=== PATIENT | female | born 1995 | race Caucasian/White ===

== ENCOUNTER 2021-09-21 22:50 | Emergency (ER) | payer MEDICAID ==
[~2021-09-21] VITALS: Ht 165.1 cm; Wt 22.7 kg
[2021-09-22] MEDS ORDERED: ondansetron 4mg rapidly disintigrating tab PO ONE (00:35)
[2021-09-22 01:21] LABS: BASOPHILS % (AUTO) 0.2 % (0-1); EOSINOPHILS % (AUTO) 0.1 % (0-6); HEMATOCRIT 38.6 % (35.0-45.0); HEMOGLOBIN 13.3 g/dl (12.0-16.0); LYMPHOCYTES # (AUTO) 2.2 X10'3 (1.1-4.8); LYMPHOCYTES % (AUTO) 12.2 % (21-51); MEAN CORPUSCULAR HEMOGLOBIN 30.3 PG (27.0-31.0); MEAN CORPUSCULAR HGB CONC 34.5 g/dL (33.0-36.5); MEAN CORPUSCULAR VOLUME 87.9 FL (78-98); MEAN PLATELET VOLUME 7.8 FL (7.4-10.4); MONOCYTES # (AUTO) 1.7 X10'3 (0-0.9); MONOCYTES % (AUTO) 9.3 % (2-12); NEUTROPHILS # (AUTO) 13.8 X10'3 (1.8-7.7); NEUTROPHILS % (AUTO) 78.2 % (42-75); PLATELET COUNT 286 X10'3 (140-440); RED BLOOD COUNT 4.39 X10'6 (4.20-5.60); RED CELL DISTRIBUTION WIDTH 13.3 % (11.5-14.5); WHITE BLOOD COUNT 17.7 X10'3 (4.5-11.0)
[2021-09-22 01:35] LABS: ALANINE AMINOTRANSFERASE 26 U/L (12-78); ALBUMIN 2.9 G/DL (3.4-5.0); ALBUMIN/GLOBULIN RATIO 0.6 (1.1-1.5); ALKALINE PHOSPHATASE 109 IU/L (46-116); ANION GAP 10 (8-16); ASPARTATE AMINO TRANSFERASE 10 U/L (10-37); BILIRUBIN,TOTAL 0.5 MG/DL (0.1-1.0); BLOOD UREA NITROGEN 12 MG/DL (7-18); BUN/CREATININE RATIO 15.8 (6.6-38.0); CALCIUM 8.6 MG/DL (8.5-10.1); CHLORIDE 102 MMOL/L (99-107); CREATININE 0.76 MG/DL (0.40-0.90); GLUCOSE 91 MG/DL (70-104); LIPASE < 50 U/L (73-393); POTASSIUM 3.8 MMOL/L (3.5-5.1); SODIUM 137 MMOL/L (135-145); TOTAL CARBON DIOXIDE 24.8 MMOL/L (24-32); TOTAL PROTEIN 7.4 G/DL (6.4-8.2); eGFR > 90 ML/MIN
[2021-09-22] MEDS ORDERED: acetaminophen 325mg tablet PO ONE (01:40)
[2021-09-22] MEDS ORDERED: normal saline 1000ml 1,000 ML IV ONE (01:40)
[2021-09-22] MEDS ORDERED: ketorolac trometh. 30mg/ml inj. IV ONE (01:40)
[2021-09-22 01:53] LABS: URINE HCG NEGATIVE (NEG)
[2021-09-22 01:56] LABS: CLARITY,URINE CLOUDY (Clear); COLOR,URINE YELLOW (Yellow); GLUCOSE, URINE NEGATIVE (Neg); KETONES,URINE 40 mg/dl (Neg); LEUKOCYTE ESTERASE ,URINE SMALL (Neg); NITRITES, URINE POSITIVE (Neg); OCCULT BLOOD,URINE LARGE (Neg); PROTEIN,URINE 30 mg/dl (Neg); UROBILINOGEN,URINE 0.2 E.U/dL (0.2-1.0)
[2021-09-22 01:57] LABS: UA COLLECTION TYPE CLN CATCH MIDSTREAM
[2021-09-22 02:07] LABS: BACTERIA,URINE 4+ /HPF (Neg); WBC,URINE TNTC /HPF (0-4)
[2021-09-22 02:08] LABS: SQUAMOUS EPITHELIAL CELL,UR NONE SEEN /LPF (FEW)
[2021-09-22] MEDS ORDERED: CefTRIAXone 2gm/D5W 50ml BAG 50 ML IV ONE (02:10)
--- NOTE | 2021-09-22 02:10 | NUR ---
Patient taken to CT
[2021-09-22] MEDS ORDERED: CIPR-202 PO (05:04)
[2021-09-22 05:25] VITALS: BP 99/67
== END 2021-09-22 05:18 | disposition left against medical advice (07) ==
LOC: ER 22:51
DX: N12 Tubulo-interstitial nephritis, not specified as acute or chronic (principal); Z88.1 Allergy status to other antibiotic agents
CPT/HCPCS: 36415; 74176; 80053; 81001; 81025; 83690; 84145; 85025; 87088; 96361; 96365; 96375; 99284; J0696; J1885; J7030; 87077; 87186

== ENCOUNTER 2021-11-19 22:49 | Emergency (ER) | payer MEDICAID ==
[~2021-11-19] VITALS: Ht 165.1 cm; Wt 52.3 kg
[2021-11-19] MEDS ORDERED: ibuprofen tablet 400 MG TABLET PO ONE (23:40)
[2021-11-19] MEDS ORDERED: acetaminophen 325mg tablet PO ONE (23:40)
[2021-11-20 00:13] LABS: BASOPHILS % (AUTO) 0.5 % (0-1); EOSINOPHILS # (AUTO) 0.1 X10'3 (0-0.9); EOSINOPHILS % (AUTO) 1.1 % (0-6); HEMOGLOBIN 13.7 g/dl (12.0-16.0); LYMPHOCYTES # (AUTO) 2.2 X10'3 (1.1-4.8); LYMPHOCYTES % (AUTO) 24.6 % (21-51); MEAN CORPUSCULAR HEMOGLOBIN 31.3 PG (27.0-31.0); MEAN CORPUSCULAR HGB CONC 34.3 g/dL (33.0-36.5); MEAN CORPUSCULAR VOLUME 91.2 FL (78-98); MEAN PLATELET VOLUME 8.1 FL (7.4-10.4); MONOCYTES # (AUTO) 0.8 X10'3 (0-0.9); MONOCYTES % (AUTO) 8.6 % (2-12); NEUTROPHILS # (AUTO) 5.9 X10'3 (1.8-7.7); NEUTROPHILS % (AUTO) 65.2 % (42-75); PLATELET COUNT 322 X10'3 (140-440); RED BLOOD COUNT 4.38 X10'6 (4.20-5.60); RED CELL DISTRIBUTION WIDTH 14.6 % (11.5-14.5)
[2021-11-20 00:56] LABS: ALANINE AMINOTRANSFERASE 15 U/L (12-78); ALBUMIN 3.5 G/DL (3.4-5.0); ALBUMIN/GLOBULIN RATIO 0.9 (1.1-1.5); ALKALINE PHOSPHATASE 95 IU/L (46-116); ANION GAP 9 (8-16); ASPARTATE AMINO TRANSFERASE 10 U/L (10-37); BILIRUBIN,TOTAL 0.2 MG/DL (0.1-1.0); BLOOD UREA NITROGEN 19 MG/DL (7-18); BUN/CREATININE RATIO 24.4 (6.6-38.0); CALCIUM 9.2 MG/DL (8.5-10.1); CHLORIDE 103 MMOL/L (99-107); CREATININE 0.78 MG/DL (0.40-0.90); GLUCOSE 105 MG/DL (70-104); POTASSIUM 3.5 MMOL/L (3.5-5.1); SODIUM 139 MMOL/L (135-145); TOTAL CARBON DIOXIDE 27.2 MMOL/L (24-32); TOTAL PROTEIN 7.4 G/DL (6.4-8.2); eGFR 90 ML/MIN
[2021-11-20 00:59] LABS: HCG SERUM QL NEGATIVE
[2021-11-20] MEDS ORDERED: CEPH-585 PO (02:23)
[2021-11-20] MEDS ORDERED: IBUP-1985 PO (02:23)
[2021-11-20] MEDS ORDERED: ACET650T58 PO (02:23)
[2021-11-20] MEDS ORDERED: cephalexin 250mg capsule PO ONE (02:25)
[2021-11-20] MEDS ORDERED: loperamide 2mg capsule PO ONE (02:25)
[2021-11-20 02:38] LABS: CLARITY,URINE CLOUDY (Clear); COLOR,URINE YELLOW (Yellow); GLUCOSE, URINE NEGATIVE (Neg); KETONES,URINE TRACE mg/dl (Neg); LEUKOCYTE ESTERASE ,URINE NEGATIVE (Neg); NITRITES, URINE NEGATIVE (Neg); OCCULT BLOOD,URINE NEGATIVE (Neg); PH,URINE 5.5 (4.8-8.0); PROTEIN,URINE 100 mg/dl (Neg); UROBILINOGEN,URINE 0.2 E.U/dL (0.2-1.0)
[2021-11-20 02:44] LABS: UA COLLECTION TYPE NON-SPECIFIED
[2021-11-20 02:45] LABS: BACTERIA,URINE 4+ /HPF (Neg); CAL OXALATE CRYSTALS 1+ /HPF (NEGATIVE); RBC,URINE NONE SEEN /HPF (0-2); SQUAMOUS EPITHELIAL CELL,UR FEW /LPF (FEW)
[2021-11-20 03:20] VITALS: BP 102/63
[2021-11-21] MEDS ORDERED: CIPR-259 PO (16:41)
--- NOTE | 2021-11-21 17:12 | NUR ---
Patient has a positive UA at which Olga Christiansen NP escripted a prescription over to [facility] on [facility] [address] for Ciprofloxacin. patient is to be placed on Cipro and continue keflex. Patient aware and will filler picker prescription tomorrow.
== END 2021-11-20 03:23 | disposition home or self-care (01) ==
LOC: ER 22:49
DX: H60.12 Cellulitis of left external ear (principal); N39.0 Urinary tract infection, site not specified; H92.02 Otalgia, left ear; R11.2 Nausea with vomiting, unspecified; M54.50 Low back pain, unspecified; Z88.1 Allergy status to other antibiotic agents; Z88.8 Allergy status to other drugs, medicaments and biological substances; Z79.2 Long term (current) use of antibiotics; Z79.899 Other long term (current) drug therapy
CPT/HCPCS: 36415; 74176; 80053; 81001; 83605; 84145; 84703; 85025; 87040; 87077; 87088; 87186; 99284

== ENCOUNTER 2022-04-16 09:18 | Emergency (ER) | payer MEDICAID ==
[~2022-04-16] VITALS: Ht 165.1 cm; Wt 56.8 kg
[~2022-04-16 09:18] MED LIST: CEPH-585 PO; IBUP-1985 PO
[2022-04-16 10:01] VITALS: BP 114/73
== END 2022-04-16 10:26 | disposition left against medical advice (07) ==
LOC: ER 09:19
DX: O03.4 Incomplete spontaneous abortion without complication (principal); Z53.21 Procedure and treatment not carried out due to patient leaving prior to being seen by health care provider

== ENCOUNTER 2022-08-27 18:38 | Emergency (ER) | payer MEDICAID, OTHER ==
[~2022-08-27] VITALS: Ht 165.1 cm; Wt 60.5 kg
[2022-08-27 18:41] VITALS: BP 117/74
== END 2022-08-27 19:15 ==
LOC: EEVIPCON 18:38 → ER 18:38
DX: Z88.1 Allergy status to other antibiotic agents; Z88.8 Allergy status to other drugs, medicaments and biological substances
CPT/HCPCS: 74018; 99283

== ENCOUNTER 2024-05-05 17:07 | Emergency (ER) | payer MEDICAID ==
[~2024-05-05] VITALS: Ht 165.1 cm; Wt 70.0 kg
[~2024-05-05 17:07] MED LIST changes: -CEPH-585 PO
[2024-05-05] MEDS: ipratropium/albuterol 3ml nebule NEB ONE (18:44)
[2024-05-05 18:45] VITALS: PULSE 89; RESP 16; O2SAT 98
[2024-05-05 18:52] VITALS: PULSE 113; RESP 16; O2SAT 99
[2024-05-05 18:57] LABS: EOSINOPHILS % (AUTO) 0.4 % (0-6); HEMATOCRIT 38.8 % (35.0-45.0); HEMOGLOBIN 13.3 g/dl (12.0-16.0); LYMPHOCYTES # (AUTO) 1.3 X10'3 (1.1-4.8); LYMPHOCYTES % (AUTO) 39.8 % (21-51); MEAN CORPUSCULAR HEMOGLOBIN 31.9 PG (27.0-31.0); MEAN CORPUSCULAR HGB CONC 34.2 g/dL (33.0-36.5); MEAN CORPUSCULAR VOLUME 93.1 FL (78-98); MEAN PLATELET VOLUME 9.6 FL (7.4-10.4); MONOCYTES # (AUTO) 0.3 X10'3 (0-0.9); MONOCYTES % (AUTO) 10.5 % (2-12); NEUTROPHILS # (AUTO) 1.6 X10'3 (1.8-7.7); NEUTROPHILS % (AUTO) 48.3 % (42-75); PLATELET COUNT 205 X10'3 (140-440); RED BLOOD COUNT 4.17 X10'6 (4.20-5.60); RED CELL DISTRIBUTION WIDTH 13.6 % (11.5-14.5); WHITE BLOOD COUNT 3.3 X10'3 (4.5-11.0)
[2024-05-05] MEDS: dexamethasone sod phosphate 10mg/ml inj PO STA (19:01)
[2024-05-05 19:17] LABS: ALANINE AMINOTRANSFERASE 15 U/L (12-78); ALBUMIN 3.6 G/DL (3.4-5.0); ALBUMIN/GLOBULIN RATIO 1.1 (1.1-1.5); ALKALINE PHOSPHATASE 66 IU/L (46-116); ANION GAP 5 (8-16); ASPARTATE AMINO TRANSFERASE 10 U/L (10-37); BILIRUBIN,TOTAL 0.3 MG/DL (0.1-1.0); BLOOD UREA NITROGEN 10 MG/DL (7-18); BUN/CREATININE RATIO 15.4 (10.0-20.0); CALCIUM 8.8 MG/DL (8.5-10.1); CHLORIDE 105 MMOL/L (99-107); CREATININE 0.65 MG/DL (0.40-0.90); GLUCOSE 81 MG/DL (70-104); SODIUM 139 MMOL/L (135-145); TOTAL CARBON DIOXIDE 28.6 MMOL/L (24-32); TOTAL PROTEIN 6.8 G/DL (6.4-8.2); eCRCL 116 ML/MIN; eGFR > 90 ML/MIN
[2024-05-05 20:07] LABS: BILIRUBIN,URINE NEGATIVE (Neg); CLARITY,URINE SLIGHTLY CLOUDY (Clear); COLOR,URINE YELLOW (Yellow); GLUCOSE, URINE NEGATIVE (Neg); KETONES,URINE 15 mg/dl (Neg); LEUKOCYTE ESTERASE ,URINE NEGATIVE (Neg); NITRITES, URINE NEGATIVE (Neg); OCCULT BLOOD,URINE TRACE-INTACT (Neg); PROTEIN,URINE NEGATIVE (Neg)
[2024-05-05 20:09] LABS: UA COLLECTION TYPE NON-SPECIFIED
[2024-05-05 20:23] LABS: BACTERIA,URINE 1+ /HPF (Neg); MUCUS STRANDS MODERATE /LPF (Neg); RBC,URINE 0-2 /HPF (0-2); SQUAMOUS EPITHELIAL CELL,UR MANY /LPF (FEW); WBC,URINE 0-4 /HPF (0-4)
[2024-05-05] MEDS ORDERED: PRED20TA PO (20:43)
[2024-05-05 21:00] VITALS: BP 124/70; PULSE 109; RESP 18; TEMP 98.9; O2SAT 98
== END 2024-05-05 21:01 | disposition home or self-care (01) ==
LOC: ER 17:08
DX: J45.901 Unspecified asthma with (acute) exacerbation (principal); J06.9 Acute upper respiratory infection, unspecified; Z88.0 Allergy status to penicillin; Z88.8 Allergy status to other drugs, medicaments and biological substances
CPT/HCPCS: 36415; 71046; 80053; 81001; 85025; 94640; 99284; J1100; 94760

== ENCOUNTER 2024-06-18 13:20 | Emergency (ER) | payer MEDICAID ==
[~2024-06-18] VITALS: Ht 165.1 cm; Wt 58.9 kg
[2024-06-18 15:37] LABS: BILIRUBIN,URINE NEGATIVE (Neg); CLARITY,URINE SLIGHTLY CLOUDY (Clear); COLOR,URINE YELLOW (Yellow); GLUCOSE, URINE NEGATIVE (Neg); KETONES,URINE TRACE mg/dl (Neg); LEUKOCYTE ESTERASE ,URINE NEGATIVE (Neg); NITRITES, URINE POSITIVE (Neg); OCCULT BLOOD,URINE NEGATIVE (Neg); PROTEIN,URINE TRACE mg/dl (Neg); UROBILINOGEN,URINE 0.2 E.U/dL (0.2-1.0)
[2024-06-18 15:52] LABS: UA COLLECTION TYPE CLN CATCH MIDSTREAM
[2024-06-18 15:53] LABS: BACTERIA,URINE 4+ /HPF (Neg); RBC,URINE 0-2 /HPF (0-2); SQUAMOUS EPITHELIAL CELL,UR FEW /LPF (FEW)
[2024-06-18 16:50] VITALS: BP 118/72; PULSE 76; RESP 16; O2SAT 99
[2024-06-18] MEDS ORDERED: CEPH-585 PO (17:30)
[2024-06-18] MEDS: cephalexin 250mg capsule PO ONE (17:59)
[2024-06-18] MEDS ORDERED: AMOX-117 PO (18:05)
[2024-06-18] MEDS ORDERED: MICO45CR46 VG (18:07)
[2024-06-18] MEDS: amox tr/potassium clavulanate 875/125mg TAB PO ONE (18:21)
[2024-06-18 18:26] VITALS: TEMP 98.1
== END 2024-06-18 18:28 | disposition home or self-care (01) ==
LOC: ER 13:20
DX: O23.41 Unspecified infection of urinary tract in pregnancy, first trimester (principal); N39.0 Urinary tract infection, site not specified; Z3A.01 Less than 8 weeks gestation of pregnancy
CPT/HCPCS: 36415; 76801; 76817; 81001; 84702; 86885; 86900; 86901; 87077; 87088; 87186; 99284

== ENCOUNTER 2024-08-29 21:01 | Emergency (ER) | payer MEDICAID ==
[~2024-08-29] VITALS: Ht 165.1 cm; Wt 58.9 kg
[2024-08-29 21:04] VITALS: BP 111/74; PULSE 83; O2SAT 99
--- NOTE | 2024-08-29 21:27 | Physician Documentation ---
History of Present Illness ~ Chief Complaint: Abdominal Pain w/vomiting Stated Complaint: ABD PAIN Time Seen by MD: 21:23 HPI 29-year-old female 16 weeks complaining of spotting abdominal cramping for aprox 2 weeks. US 3 weeks ago indicated low placenta. Spotting have resolved cramping continues 4/10 pain. Complains Of: pelvic pain Para Abort: (Seven), Para (Three) Recieved Care?: Yes Location of Pain: suprapubic Pain Quality: cramping Timing/Duration of Onset: weeks Pain Timing: irregular Duration of Pain: brief Severity of Pain: mild Medication Reconciliation Allergies: Coded Allergies: pseudoephedrine (Verified Allergy, Unknown, 08/29/24) Scheduled Ibuprofen (Ibuprofen), 1 TAB PO Q8H Past Medical History Past Medical History: No Pertinent History, UTI Past Surgical History: no surgical history Alcohol Use: None Drug Use: other Lives In: Home Review of Systems All Other Systems at this time: Reviewed and Negative Female Genitalia: Reports: see HPI Physical Exam Physical Exam Vital Signs: Temperature: 98.0, Heart Rate: 83, Respiratory Rate: 16, BP: 111/74, Pulse Oximetry: 99, Weight: 58.900 Oxygen Flow Rate: 0 General Appearance: alert, WD/WN, no apparent distress Respiratory: lungs clear, normal breath sounds, no respiratory distress Cardiovascular: normal peripheral pulses, regular rate, rhythm, no edema Progress Results/Orders Results/Orders Orders - OLGA CHRISTIANSEN [employer] Us Ob Ltd (08/29/24 ) Saline Lock (08/29/24 21:27) US OB (08/29/24 21:53) Completed Orders - OLGA CHRISTIANSEN [employer] Urinalysis, Cult If Indicated (08/29/24 21:27) Normal Saline 1000ml (Sodium Chloride 10 (08/29/24 21:30) Hcg Serum Qt (08/29/24 21:27) Abo/Rh (08/29/24 21:27) US OB (08/29/24 21:53) Medications Received in ER Medications (Trade) Dose Ordered Sig/Prasanna Route PRN Reason Start Time Stop Time Status Last Admin Dose Admin (sodium chloride 1000ml IV soln) 1,000 ml ONCE ONCE IVB 08/29/24 21:30 08/29/24 21:31 DC 08/29/24 21:52 1,000 ML Vital Signs 08/29/24 21:04 Temp 98.0 Pulse 83 Resp 16 B/P (MAP) 111/74 Pulse Ox 99 O2 Flow Rate 0 Laboratory Tests Test 08/29/24 21:45 08/29/24 22:36 HCG Beta Subunit [id number] Urine Specimen Description Cln catch midstream Urine Color Yellow Urine Clarity Clear Urine pH 6.0 Urine Specific Vass >=1.030 Urine Protein Negative Urine Glucose (UA) Negative Urine Ketones Negative Urine Occult Blood Negative Urine Nitrite Negative Urine Bilirubin Negative Urine Urobilinogen 0.2 Urine Leukocyte Esterase Negative Urine Culture Indicated Not ind Volume Urine Centrifuged 10 ml Urine Comment Medical Decision Making Findings Ultrasound ordered fetus measuring approximately 15 weeks four days with a heart rate of 146. Patient states mild cramping that is intermittent currently without spotting. Patient does have care. Differential Dx:Considerations: Include: -complete, - incomplete, -threatened, Active labor-, Cystitis: Acute Departure Time of Disposition: 22:36 Disposition: 01 HOME / SELF CARE / HOMELESS Impression: Primary Impression: First trimester Condition: Stable Discharge Instructions: Abdominal Pain During Additional Instructions: Continue to maintain appointments and get a hold of your OBGYN. Continue to monitor for spotting and cramping. Stay well hydrated. Referrals: NO PRIMARY CARE PROVIDER (PCP) Education Educated: Patient Educated regarding: diagnosis, treatment Signature Scribe Signature: No scribe Attestation: The note accurately reflects work and decisions made by me.Olga Christiansen - BUZZ 08/29/24 21:27 OLGA CHRISTIANSEN NP Aug 29, 2024 21:27
[2024-08-29] MEDS: normal saline 1000ML IV soln IVB ONE (21:52)
[2024-08-29 23:05] LABS: BILIRUBIN,URINE NEGATIVE (Neg); CLARITY,URINE CLEAR (Clear); COLOR,URINE YELLOW (Yellow); GLUCOSE, URINE NEGATIVE (Neg); KETONES,URINE NEGATIVE (Neg); LEUKOCYTE ESTERASE ,URINE NEGATIVE (Neg); NITRITES, URINE NEGATIVE (Neg); OCCULT BLOOD,URINE NEGATIVE (Neg); PROTEIN,URINE NEGATIVE (Neg); UROBILINOGEN,URINE 0.2 E.U/dL (0.2-1.0)
[2024-08-29 23:06] LABS: UA COLLECTION TYPE CLN CATCH MIDSTREAM
[2024-08-29 23:27] VITALS: TEMP 98
[2024-08-29 23:32] VITALS: RESP 18
--- NOTE | 2024-08-30 00:38 | RADIOLOGY REPORT ---
LIMITED SURVEY CLINICAL HISTORY: abd pain COMPARISON: US US OB on DOS: 06/18/24 TECHNIQUE: Real-time grayscale, color flow and M-mode imaging of the gravid uterus is performed. FINDINGS: Single living intrauterine gestation. Cephalic presentation. heart rate 146 beats per minute. Average ultrasound age 15 weeks 4 days. Estimated due date 02/16/2025. measurements (cm): BPD 3.1, HC 11.0, AC 9.9, FL 1.7. Estimated weight: 124.8 g Placenta is posterior. No definite evidence of abruption or previa. Attention on follow-up for possib le low-lying placenta which measures approximately 2.8 cm from the internal cervical os at this time. The cervix otherwise measures approximately 3.2 cm in length and appears closed. Amniotic fluid index 14.8 cm. IMPRESSION: Single living intrauterine gestation as above.
== END 2024-08-29 23:52 | disposition home or self-care (01) ==
LOC: ER 21:02
DX: O26.891 Other specified pregnancy related conditions, first trimester (principal); O21.9 Vomiting of pregnancy, unspecified; Z3A.16 16 weeks gestation of pregnancy; Z88.8 Allergy status to other drugs, medicaments and biological substances
CPT/HCPCS: 36415; 76805; 81003; 84702; 86900; 86901; 96360; 99284; J7030

== ENCOUNTER 2024-11-11 23:57 | Emergency (ER) | payer MEDICAID, SELFPAY ==
[~2024-11-11] VITALS: Ht 165.1 cm; Wt 61.3 kg
[~2024-11-11 23:57] MED LIST changes: -IBUP-1985 PO; +IBUP600T52 PO
[2024-11-12] VITALS: TEMP 97.9
--- NOTE | 2024-11-12 00:13 | Physician Documentation ---
History of Present Illness ~ Chief Complaint: Complications Stated Complaint: PELVIC PAIN Time Seen by MD: 00:12 HPI Patient presents to the emergency room with leaking since yesterday. Patient has a proximally 26 weeks by ultrasound. Patient is A3. She is established with OBGYN. She reports decreased movement. Onset of symptoms a proximally 24 hours ago Medication Reconciliation Allergies: Coded Allergies: pseudoephedrine (Verified Allergy, Unknown, 08/29/24) Scheduled Ibuprofen (Ibuprofen), 1 TAB PO Q8H Past Medical History Past Medical History: No Pertinent History, UTI Past Surgical History: no surgical history Alcohol Use: None Drug Use: other Lives In: Home Review of Systems ROS All review of systems negative except as per HPI Physical Exam Physical Exam Vital Signs: Temperature: 97.9, Heart Rate: 77, Respiratory Rate: 16, BP: 145/85, Pulse Oximetry: 100, Weight: 61.300 Oxygen Flow Rate: 0 Physical Exam General: Patient is awake, alert, oriented x4 in no acute distress and well appearing.~ Head: Normocephalic and atraumatic. Eyes: Conjunctival normal. EOMI. PERRL. ENT: Mucous membranes moist. Neck: Supple, trachea is midline. Chest: Clear to auscultation bilaterally without rales, rhonchi, or wheezes. There is no accessory muscle use or retractions. Cardiac: RRR without murmurs, gallops, or rubs. Abd: Soft, gravid, nontender, with normoactive bowel sounds. No guarding, rebound, or rigidity. : Normal female external genitalia, noted yeast infection, no tenderness on exam negative chandelier cervix fingertip Progress Progress Note Bedside ultrasound performed by myself shows intra-abdominal with heart rate of a proximally 150 PH strip of vaginal secretion show pH between four and five Results/Orders Results/Orders Orders - MARCIAL VILLA MD Urinalysis, Cult If Indicated (11/12/24 00:12) US OB (11/12/24 00:43) Completed Orders - MARCIAL VILLA MD Cbc/Diff (11/12/24 00:12) BMP (11/12/24 00:12) Lipase (11/12/24 00:12) CMP (11/12/24 00:12) Hcg Serum Qt (11/12/24 00:25) Vital Signs 11/12/24 11/12/24 00:00 01:00 Temp 97.9 Pulse 77 Resp 16 18 B/P (MAP) 145/85 Pulse Ox 100 O2 Flow Rate 0 Laboratory Tests Test 11/12/24 00:25 11/12/24 00:53 White Blood Count 11.7 H Red Blood Count 3.91 L Hemoglobin 12.5 Hematocrit 36.2 Mean Corpuscular Volume 92.7 Mean Corpuscular Hemoglobin 31.9 H Mean Corpuscular Hemoglobin Concent 34.4 Red Cell Distribution Width 12.9 Platelet Count 329 Mean Platelet Volume 8.3 Neutrophils (%) (Auto) 73.4 Lymphocytes (%) (Auto) 22.1 Monocytes (%) (Auto) 4.0 Eosinophils (%) (Auto) 0.2 Basophils (%) (Auto) 0.3 Neutrophils # (Auto) 8.6 H Lymphocytes # (Auto) 2.6 Monocytes # (Auto) 0.5 Eosinophils # (Auto) 0.0 Basophils # (Auto) 0.0 CBC Comment Sodium Level 136 Potassium Level 3.7 Chloride Level 105 Carbon Dioxide Level 21.3 L Anion Gap 10 Blood Urea Nitrogen 14 Creatinine 0.56 Estimated GFR/1.73 m2 > 90 BUN/Creatinine Ratio 25.0 H Glucose Level 84 Calcium Level 8.7 Total Bilirubin 0.2 Aspartate Amino Transf (AST/SGOT) 10 Alanine Aminotransferase (ALT/SGPT) 15 Alkaline Phosphatase 57 Total Protein 6.4 Albumin 2.9 L Globulin 3.5 Albumin/Globulin Ratio 0.8 L Lipase 15 L HCG Beta Subunit [id number] Chemistry Comments Urine Comment Medical Decision Making Findings Patient presents to the emergency room with decreased movement leaking as per HPI. Differentials include but are not limited to labor, premature rupture of labor, demise, central abruption therefore emergent labs and imaging indicated. Labs and imaging reassuring. Patient's initial blood pressure was high upon presentation however his spontaneously improved. No elevation of liver enzymes or decreased kidney function he had not feel patient is suffering from preeclampsia. Physical exam did show yeast infection. Departure Disposition: HOME / SELF CARE / HOMELESS Impression: Primary Impression: Yeast infection Additional Impression: Intrauterine Condition: Stable Discharge Instructions: Vaginal Yeast Infection, Adult Additional Instructions: Follow up with your OBGYN tomorrow for re-evaluation Referrals: NO PRIMARY CARE PROVIDER (PCP) Education Educated: Patient Educated regarding: diagnosis, treatment, need for follow up Signature Scribe Signature: No scribe Attestation: The note accurately reflects work and decisions made by me.Marcial Villa MD 11/12/24 01:51 MARCIAL VILLA MD Nov 12, 2024 00:13
[2024-11-12 00:46] LABS: MEAN PLATELET VOLUME 8.3 FL (7.4-10.4); RED CELL DISTRIBUTION WIDTH 12.9 % (11.5-14.5)
[2024-11-12 01:02] LABS: CREATININE 0.56 MG/DL (0.40-0.90); TOTAL CARBON DIOXIDE 21.3 MMOL/L (24-32); eCRCL 135 ML/MIN; eGFR > 90 ML/MIN
[2024-11-12] MEDS ORDERED: MICO45CR46 VG (01:55)
[2024-11-12 02:04] VITALS: BP 109/57; PULSE 58; RESP 16; O2SAT 100
[2024-11-12 02:11] LABS: LEUKOCYTE ESTERASE ,URINE NEGATIVE (Neg); NITRITES, URINE NEGATIVE (Neg); OCCULT BLOOD,URINE NEGATIVE (Neg)
[2024-11-12 02:16] LABS: UA COLLECTION TYPE CLN CATCH MIDSTREAM
--- NOTE | 2024-11-12 02:19 | RADIOLOGY REPORT ---
EXAM: US US OB HISTORY: Decreased movement TECHNIQUE: Multiple real-time grayscale images of the gravid uterus with duplex Doppler color flow an d M-mode spectral analysis. COMPARISON: US US OB on DOS: 08/29/24, US US OB on DOS: 06/18/24, CT ABDOMEN PELVIS on DOS: 11/19/21, CT ABDOMEN PELVIS on DOS: 09/22/21 FINDINGS: IUP single live fetus at 25 weeks 5 days average ultrasound age (AUA) based on composite averages of the BPD, head circumference, abdominal circumference and femur length Age based on (early ultrasound) : 26 weeks 1 day MEASUREMENTS: BPD: 6.3 cm GA: 25 w 5 d HC: 23.4 cm GA: 25 w 3 d AC: 21.1 cm GA: 25 w 5 d FL: 4.5 cm GA: 25 w 1 d Estimated weight 815.82 +/-122.37 grams; 1 lbs 13 oz +/-4 oz, 16th percentile. heart rate 145 beats per minute ARNOLD 9.9 cm ANATOMIC SURVEY: Complete anatomic survey was not performed at this time. Limited movement noted. Cephalic Presentation Posterior placenta without previa or abruption Cervix closed measuring 4.3 cm IMPRESSION: 1. IUP single live fetus at 25 weeks 5 days AUA corresponding to an DINESH of 02/21/2025. 2. Limited movement noted. 3. Closed cervix measuring 4.3 cm.
== END 2024-11-12 02:22 | disposition home or self-care (01) ==
LOC: ER 23:58
DX: O00.00 Abdominal pregnancy without intrauterine pregnancy (principal); B37.9 Candidiasis, unspecified; Z3A.26 26 weeks gestation of pregnancy; Z79.899 Other long term (current) drug therapy
CPT/HCPCS: 36415; 76805; 80053; 81003; 83690; 84702; 85025; 99284

== ENCOUNTER 2024-11-15 10:27 | Emergency (ER) | payer MEDICAID ==
[~2024-11-15] VITALS: Ht 165.1 cm; Wt 64.0 kg
[~2024-11-15 10:27] MED LIST changes: +MICO45CR46 VG
[2024-11-15 10:34] VITALS: BP 110/73; PULSE 87; RESP 16; O2SAT 97
[2024-11-15] MEDS: rabies immune globulin/PF 150 unit/ml inj IMVAC STA (10:41)
[2024-11-15] MEDS ORDERED: AMOX-580 PO (11:33)
--- NOTE | 2024-11-15 11:33 | Physician Documentation ---
History of Present Illness ~ Chief Complaint: Bite-animal Stated Complaint: DOG BITE Time Seen by MD: 11:16 OK to notify your PCP?: Yes Source: patient Mode of Arrival: POV Exam Limitations: no limitations HPI 29-year-old right-handed female who is 26weeks with chief complaint dog bite to her right hand which occurred just prior to arrival. Patient states that 105 lb pit bull but was attacking her small Chihuahua and she was trying to break it up when initially she was not sure which dog bit her but she states that someone watched video surveillance and states that it was the pit bull that bit her. She reports the pit bull has been confirmed to be up to date with his rabies immunization. Patient has not had a tetanus in over 10years. No difficulty moving hand or fingers. Tetanus within 5 years?: No (Didnt ask) Medication Reconciliation Allergies: Coded Allergies: pseudoephedrine (Verified Allergy, Unknown, 11/15/24) Scheduled Amox Tr/Potassium Clavulanate 875/125 MG (Augmentin 875/125 MG), 1 TAB PO Q12H Ibuprofen (Ibuprofen), 1 TAB PO Q8H Miconazole Nitrate Vag Cream* (Monistat-7 Day Vag Crm*), 1 APPLICATOR VG HS Past Medical History Past Medical History: No Pertinent History, UTI Past Surgical History: no surgical history Alcohol Use: None Drug Use: other Lives In: Home Review of Systems All Other Systems at this time: Reviewed and Negative Physical Exam Vital Signs: Temperature: 97.7, Source: Temporal, Heart Rate: 87, Respiratory Rate: 16, BP: 110/73, Pulse Oximetry: 97, Weight: 64.000 Oxygen Flow Rate: 0 Physical Exam General Appearance: Alert, WD/WN. NAD. HEENT: NCAT, PERRL, EOMI. Neck: Supple, trachea midline. Cardiovascular: RRR. No m/r/g. Lungs: CTAB. Breathing unlabored Skin: Warm/dry, normal color. 1.5cm laceration right palm. Neurological: Alert and oriented x4, normal gait. Psychiatric: Affect congruent with mood. Procedures Splinting Location: right hand Pre-Made Type: velcro Splint: thumb spica Pre-Proc Neuro Vasc Exam: normal Post-Proc Neuro Vasc Exam: normal Splint Placed By: addiction psychiatrist Tolerated Procedure Well?: yes, no complications Laceration/Wound Repair Laceration/Wound Repair : Length (cm): 1.5 Anesthesia: Lidocaine w/ Epi Volume Anesthetic (mls): 5 Prep: irrigated by nurse Irrigated w/ Saline (mls): 500 Debrided: minimal (You) Undermining: none Margins: revised Foreign Body: not identified Repaired: skin Wound Repaired With: sutures Suture Size/Type: 5-0, ethilon Number of Superficial Sutures: 1 Dressing Applied: simple Tolerated Procedure Well?: yes, no complications Progress Results/Orders Results/Orders Orders - BRITTANY MCKOY Laceration/I&D Tray Set Up (11/15/24 11:29) Completed Orders - BRITTANY MCKOY Rabies Vaccine (Pcec)/Pf (Rabavert Rabie (11/15/24 10:45) Rabies Immune Globulin/Pf Inj (Hyperrab (11/15/24 10:41) Lidocaine 1% W/Epi 1:100,000 (Xylocaine (11/15/24 11:30) Tetanus/Pertuss/Diph Acell/Pf (Boostrix (11/15/24 11:30) Vital Signs 11/15/24 10:34 Temp 97.7 Pulse 87 Resp 16 B/P (MAP) 110/73 Pulse Ox 97 O2 Flow Rate 0 Medical Decision Making Differential Dx:Considerations: Include: Abrasion, Allergic reaction, Anaphylaxis, Cellulitis, Contusion, Fracture, Hematoma, Insect envenomation, Laceration, Neurovascular injury, Punture wound, Retained foreign body, Urticaria, Other Departure Time of Disposition: 11:32 Disposition: 01 HOME / SELF CARE / HOMELESS Impression: Primary Impression: Dog bite Qualified Codes: W54.0XXA - Bitten by dog, initial encounter Condition: Stable Discharge Instructions: Animal Bite, Adult Additional Instructions: DO NOT GET SUTURE WET X 24HOURS SUTURE NEEDS TO BE REMOVED IN ABOUT 7DAYS Referrals: NO PRIMARY CARE PROVIDER (PCP) Prescriptions Amox Tr/Potassium Clavulanate 875/125 MG (Augmentin 875/125 MG) 875 Mg-125 Mg Tablet 1 TAB PO Q12H for 5 Days, #10 TAB Prov: BRITTANY MCKOY 11/15/24 Education Educated: Patient Educated regarding: diagnosis, treatment, need for follow up Signature Scribe Signature: X Attestation: BRITTANY GUERRERO Nov 15, 2024 11:33
[2024-11-15] MEDS: TETanus/Pertussis (Acell)/Diphther VAC/PF (Tdap-Adult) 0.5ml syringe IMVAC ONE (12:00)
[2024-11-15] MEDS: LIDOcaine 1% W/epiNEPHrine 1:100,000 20ml vial IJ ONE (12:00)
[2024-11-15 12:53] VITALS: TEMP 97.7
== END 2024-11-15 12:55 | disposition home or self-care (01) ==
LOC: ER 10:27
DX: O9A.212 Injury, poisoning and certain other consequences of external causes complicating pregnancy, second trimester (principal); S61.451A Open bite of right hand, initial encounter; Z79.899 Other long term (current) drug therapy; Z3A.26 26 weeks gestation of pregnancy; W54.0XXA Bitten by dog, initial encounter; Y93.89 Activity, other specified; Y92.89 Other specified places as the place of occurrence of the external cause; Y99.8 Other external cause status
CPT/HCPCS: 12001; 99283; J7030; A6258; A6449

== ENCOUNTER 2025-01-20 20:18 | Emergency (ER) | payer MEDICAID ==
[~2025-01-20] VITALS: Ht 165.1 cm; Wt 67.4 kg
[~2025-01-20 20:18] MED LIST changes: -MICO45CR46 VG
--- NOTE | 2025-01-20 21:17 | Physician Documentation ---
History of Present Illness ~ Chief Complaint: Abscess Stated Complaint: VOMITING Time Seen by MD: 20:48 HPI This is a 29-year-old female who presents with pain and swelling to her lower lip, patient reports that she recently had poison oak on her face and has since developed an area of purulent drainage to her lower lip. Patient reports that two days ago it was a small pimple and today began draining a small amount of purulent material. Patient reports no fever, chills, or other systemic symptoms. Patient reports no difficulty breathing or swallowing. Tetanus Within 5 Years: No (Didnt ask) Medication Reconciliation Allergies: Coded Allergies: pseudoephedrine (Verified Allergy, Unknown, 01/20/25) Scheduled Clindamycin HCl (Clindamycin HCl CAPSULE), 3 CAP PO TID Ibuprofen (Ibuprofen), 1 TAB PO Q8H Past Medical History Past Medical History: No Pertinent History, UTI Past Surgical History: no surgical history Alcohol Use: None Drug Use: other Lives In: Home Review of Systems ROS As stated above in the HPI, otherwise all systems are reviewed and negative. Physical Exam Vital Signs: Temperature: 98.4, Source: Oral, Heart Rate: 85, Respiratory Rate: 16, BP: 124/80, Pulse Oximetry: 99, Weight: 67.400 Oxygen Flow Rate: 0 Physical Exam VITALS: Reviewed and as above. GENERAL: Alert, nontoxic appearing, no apparent distress. HEENT: Lower lip mildly swollen, area of spontaneous purulent drainage just inferior to lower lip, no submandibular elevation, no significant facial swelling RESPIRATORY: No increased work of breathing, no respiratory distress, speaking in full clear sentences SKIN: Minimal fluctuance and induration to area just below lower lip, no erythema Procedures I & D Procedure : Site: Lower outer lip Anesthesia: Lidocaine w/ Epi Volume Anesthetic (mls): 1 Blade Size: 11 Incision: mass incised, pus drained Tolerated Procedure Well?: yes, no complications Progress Results/Orders Results/Orders Orders - PRISCA OMALLEY Laceration/I&D Tray Set Up (01/20/25 21:38) Completed Orders - PRISCA OMALLEY Lidocaine 1% W/Epi 1:100,000 (Xylocaine (01/20/25 21:40) Acetaminophen 325mg Tablet (Tylenol Tabl (01/20/25 22:10) Clindamycin Capsule (Cleocin Capsule) (01/20/25 22:10) Medications Received in ER Medications (Trade) Dose Ordered Sig/Prasanna Route PRN Reason Start Time Stop Time Status Last Admin Dose Admin (Xylocaine 1%-EPI 1:100,000) Physician to administ... ONCE ONCE IJ 01/20/25 21:40 01/20/25 21:44 DC 01/20/25 21:59 5 ML (Tylenol tablet) 650 mg ONCE ONCE PO 01/20/25 22:10 01/20/25 22:13 DC 01/20/25 22:21 650 MG (Cleocin capsule) 450 mg ONCE ONCE PO 01/20/25 22:10 01/20/25 22:13 DC 01/20/25 22:21 450 MG Vital Signs 01/20/25 01/20/25 20:28 22:24 Temp 98.4 98.6 Pulse 85 80 Resp 16 18 B/P (MAP) 124/80 123/72 Pulse Ox 99 99 O2 Flow Rate 0 Medical Decision Making Additional information obtaine: N/A Findings This 29-year-old female presented with an area of pain and swelling just below her lower lip physical exam was consistent with a small uncomplicated abscess or furuncle, this area was opened and a small amount of purulent material drained without complication. Patient is otherwise well-appearing and appropriate for outpatient follow up, patient discharged on course of oral antibiotics. Patient provided home care instructions, return to care precautions, and follow up i nstructions which he verbalized understanding of. Differential Dx:Considerations: Include: Abscess, Cellulitis, Erysipelas, Gas gangrene, Paronychia, Septicemia, Other (Liu's angina) Departure Time of Disposition: 22:15 Disposition: 01 HOME / SELF CARE / HOMELESS Impression: Primary Impression: Abscess Condition: Improved Discharge Instructions: Abscess, Care After Additional Instructions: Use warm moist compresses on the area two to 3 times a day, keep the area clean and dry, please take the antibiotics as prescribed. You may use ibuprofen and or Tylenol as needed for pain as directed by [id number] packaging. Please follow up with your primary care provider in the next few days. Please return to the emergency department for any new or worsening concerning symptoms. Referrals: NO PRIMARY CARE PROVIDER (PCP) Prescriptions Clindamycin HCl (Clindamycin HCl CAPSULE) 150 Mg Capsule 3 CAP PO TID for 7 Days, #63 CAP Prov: PRISCA OMALLEY 01/20/25 Education Educated: Patient Educated regarding: diagnosis, treatment, prognosis, need for follow up Signature Scribe Signature: No scribe Attestation: The note accurately reflects work and decisions made by me.BUZZ Tellez 01/21/25 01:24 PRISCA OMALLEYP Jan 20, 2025 21:17
[2025-01-20] MEDS: LIDOcaine 1% W/epiNEPHrine 1:100,000 20ml vial IJ ONE (21:59)
[2025-01-20] MEDS ORDERED: CLIN-214 PO (22:15)
[2025-01-20 22:24] VITALS: BP 123/72; PULSE 80; RESP 18; TEMP 98.6; O2SAT 99
== END 2025-01-20 22:26 | disposition home or self-care (01) ==
LOC: ER 20:19
DX: K13.0 Diseases of lips (principal)
CPT/HCPCS: 10060; 99283; J3490; A6449